=== PATIENT | female | born 1990 | race Caucasian/White ===

== ENCOUNTER 2017-04-19 15:09 | Emergency (ER) | payer OTHER ==
[~2017-04-19] VITALS: Ht 172.7 cm; Wt 81.7 kg
[2017-04-19] MEDS ORDERED: ASPIR 8181 MG PO (15:15)
[2017-04-19 15:46] LABS: ABSOLUTE EOSINOPHILS 0.1 thou/uL (0.0-0.7); ABSOLUTE LYMPHOCYTES 1.7 thou/uL (0.8-5.3); ABSOLUTE MONOCYTES 0.4 thou/uL (0.0-1.2); ABSOLUTE NEUTROPHILS 5.6 thou/uL (1.6-8.1); BASOPHILS 0.3 %; EOSINOPHILS 1.4 %; HEMATOCRIT 40.1 % (37.0-47.0); HEMOGLOBIN 13.4 gm/dL (12.0-15.0); LYMPHOCYTES 21.6 %; MCHC 33.4 g/dL (28.0-37.0); MCV 83.9 fL (80.0-100.0); MONOCYTES 5.5 %; MPV 8.1 fl. (7.2-11.1); NUCLEATED RBCS 0 /100WBC; PLATELET COUNT* 213 thou/uL (150-400); POLYS 71.2 %; RBC 4.79 mil/uL (4.20-5.00); RDW-CV 13.3 % (10.5-14.5); WBC 7.9 thou/uL (4.0-11.0)
[2017-04-19 15:52] LABS: CALCIUM 8.9 mg/dL (8.5-10.1); CREATININE 0.9 mg/dL (0.6-1.3); POTASSIUM 3.4 mmol/L (3.5-5.1)
[2017-04-19 15:57] LABS: ALBUMIN 3.9 g/dL (3.4-5.0); MAGNESIUM 1.9 mg/dL (1.8-2.4); TOTAL BILIRUBIN 0.3 mg/dL (<0.1-1.0); TOTAL PROTEIN 7.3 g/dL (6.4-8.2)
[2017-04-19 16:29] VITALS: BP 123/93
--- NOTE | 2017-04-20 13:20 | EKG ---
[place] [address] ELECTROCARDIOGRAM REPORT Name: MAYELIN COONEY Room: [facility]#: [id number] Admission: 04/19/17 Attend Phys: Discharge: 04/19/17 Date of : 88 Report #: [id number] THIS REPORT FOR: //name// [facility] ED Test Date: 2017-04-19 Test Time: 15:16:01 Pat Name: MAYELIN COONEY Department: Room: Gender: F Travel Consultant: Gabby BERGMAN : 1990 Requested By: Yana Pearce Order Number: [id number] MD: Danilo Tuttle Measurements Intervals [place] Rate: 76 P: 27 RI: 151 QRS: -10 QRSD: 88 T: 19 QT: 400 QTc: 450 Interpretive Statements Sinus rhythm Borderline T abnormalities, anterior leads No previous ECG available for comparison Electronically Signed On 04-20-2017 13:20:26 [employer] by Danilo Tuttle [email or web address] <ELECTRONICALLY SIGNED> By: Danilo Tuttle MD, [facility] 04/20/17 1320 1516 1516 Danilo Tuttle MD, FACC /EPI
== END 2017-04-19 16:31 | disposition home or self-care (01) ==
LOC: M.ERS 15:09
PROVIDERS: Nurse Practitioner Family
DX: R00.2 Palpitations (principal); Z88.0 Allergy status to penicillin